=== PATIENT | female | born 1995 | race American Indian/Alaskan Native ===

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

== ENCOUNTER 2019-06-14 19:22 | Emergency (ER) | payer SELFPAY ==
--- NOTE | 2019-06-14 20:00 | Event Note ---
ED Screening Note Date of service: 06/14/19 Time: 19:55 ED Screening Note: This is a 23 y.o. F. that presents to the ER with lower abdominal pain for 2 days. + test at urgent care 2 days ago. + vaginal discharge, urinary frequency - dysuria, hematuria, vaginal bleeding, n/v/d LMP 05/05/2019 This initial assessment/diagnostic orders/clinical plan/treatment(s) is/are subject to change based on patients health status, clinical progression and re- assessment by fellow clinical providers in the ED. Further treatment and workup at subsequent clinical providers discretion. Patient/guardian urged not to elope from the ED as their condition may be serious if not clinically assessed and managed. Initial orders include: Labs OB US
[2019-06-14 20:28] LABS: Bilirubin,Urine NEG (Negative); Blood,Urine NEG (Negative); Color,Urine Yellow (Yellow); Protein,Urine <15 mg/dL mg/dL (Negative)
--- NOTE | 2019-06-14 21:18 | Ultrasound Report ---
ULTRASOUND OBSTETRIC INDICATION / CLINICAL INFORMATION: abdominal pain gest. Clinical Gestational Age (GA): 15 weeks 5 days by last menstrual period. TECHNIQUE: Transabdominal and Transvaginal. COMPARISON: None available. FINDINGS: GESTATIONAL SAC: Not identified. Uterus is grossly unremarkable appearance. It measures 7.1 x 3.9 x 4.7 cm and has an endometrial stri pe of 1.6 cm. ADNEXA: No significant abnormality. FREE FLUID: None. ADDITIONAL FINDINGS: None. IMPRESSION: No intrauterine is identified. This is considered a of unknown location. Serial m onitoring of beta hCG and close clinical follow-up are recommended, with repeat ultrasound as needed. Signer Name: Matt Bashir MD Signed: 06/14/2019 9:14 PM Workstation Name: [id number]
[2019-06-14 22:21] VITALS: BP 110/71
== END 2019-06-14 22:15 | disposition home or self-care (01) ==
LOC: ED 19:22
DX: O26.891 Other specified pregnancy related conditions, first trimester (principal); R10.30 Lower abdominal pain, unspecified; Z3A.01 Less than 8 weeks gestation of pregnancy
CPT/HCPCS: 36415; 76801; 76817; 81001; 84702; 84703

== ENCOUNTER 2019-07-12 16:08 | Emergency (ER) | payer SELFPAY ==
[2019-07-12] MEDS ORDERED: IBUPROFEN 800 MG TAB ONE (16:55)
[2019-07-12] MEDS ORDERED: IBUPROFEN 800 MG TAB PO ONE (16:56)
--- NOTE | 2019-07-12 18:21 | Emergency Department Report ---
ED Laceration HPI - HPI Chief Complaint: Wound/Laceration Stated Complaint: RIGHT HAND CUT Time Seen by Provider: 07/12/19 16:57 Occurred When: Today Location: Upper Extremity (right 3 finger tips) Tetanus Status: Up to Date (september2018) Laceration Symptoms: Yes Pain, No Foreign Body Sensation, No Numbness, No Weakness Other History: This is a 23-year-old female presents the ED complaining of pain and laceration to her right last 3 digits sustained from a scissors. Patient states that 1 of her coworker was handing her scissors and retracted it causing lacerations to her fingers. Patient states this happened today around 2:00 PM. Patient states she has a tetanus booster last year September when she got out of alf ED Review of Systems ROS: Stated complaint: RIGHT HAND CUT Other details as noted in HPI Comment: All other systems reviewed and negative ED Past Medical Hx - Past Medical History Previous Medical History?: No - Surgical History Past Surgical History?: No - Social History Smoking Status: Current Every Day Smoker Substance Use Type: Marijuana - Medications Home Medications: Home Medications Medication Instructions Recorded Confirmed Last Taken Type Penicillin Vk [Veetids TAB] 500 mg PO Q8H #30 tablet 02/06/15 Unknown Rx Acetaminophen/Codeine [Tylenol 1 tab PO Q6H PRN #15 tab 05/19/15 Unknown Rx /Codeine # 3 tab] Amoxicillin [Amoxicillin TAB] 875 mg PO BID #20 tablet 05/19/15 Unknown Rx Ibuprofen [Motrin 800 MG tab] 800 mg PO Q8HR PRN #30 tablet 05/19/15 Unknown Rx Amoxicillin/K Clav Tab [Augmentin 1 tab PO Q12HR #20 tab 07/25/16 Unknown Rx 875 mg] Ibuprofen [Motrin 800 MG tab] 800 mg PO Q8HR PRN #20 tablet 07/25/16 Unknown Rx Promethazine [Phenergan TAB] 25 mg PO Q6HR PRN #20 tab 07/25/16 Unknown Rx Promethazine [Phenergan] 25 mg SC Q6HR PRN #5 supp.rect 07/25/16 Unknown Rx traMADoL [Ultram] 50 mg PO Q6HR PRN #14 tablet 07/25/16 Unknown Rx Cyclobenzaprine [Flexeril] 10 mg PO QHS PRN #20 tablet 07/12/19 Unknown Rx Ibuprofen [Motrin 800 MG tab] 800 mg PO Q8HR PRN #30 tablet 07/12/19 Unknown Rx Laceration Physical Exam - Exam General: Vital signs noted. No distress. Alert and acting appropriately. Laceration Location: Upper Extremity Laceration Exam: Yes Normal Distal CMS, No Foreign Body, No Exposed Tendon, Vessel, or Nerve, No Tendon Injury ED Course Vital Signs 07/12/19 07/12/19 16:12 16:59 Temperature 97.5 F L Pulse Rate 90 Respiratory 20 18 Rate Blood Pressure 123/94 O2 Sat by Pulse 98 Oximetry - Laceration /Wound Repair Right Anterior Finger Wound Location: upper extremity Wound Length (cm): 3 Wound's Depth, Shape: superficial, linear Wound Explored: no foreign body removed Betadine Prep?: No Anesthesia: 1% Lidocaine Volume Anesthetic (ccs): 4 Wound Repaired With: sutures Suture Size/Type: 5:0, proline Number of Sutures: 22 Layer Closure?: No Sterile Dressing Applied?: Yes ED Medical Decision Making - Medical Decision Making 23-year-old female presents with laceration of 3+ fingers of the right hand The 1cm laceration wound on each finger was prepped and draped in sterile fa shion. Anesthesia was achieved with 1.5mL of 1% lidocaine using a digital block. The wound was irrigated with 200cc NS and explored. There were no foreign bodies The wound was reapproximated in 1 layer with sutures suing with 5-0 monofilament sutures in the dermis with continuous sutures percutaneously. 8 stitches to the middle finger 8 stitches to the fourth digit and 6 stitches to the little finger There was excellent reapproximation of the wound edges. The patient tolerated the procedure without complication. Discussed with patient to follow-up with her primary care provider within 7 to 10 days for suture removal. Critical care attestation.: If time is entered above; I have spent that time in minutes in the direct care of this critically ill patient, excluding procedure time. ED Disposition Clinical Impression: Laceration of finger of right hand without foreign body without damage to nail Disposition: [id number] TO HOME OR SELFCARE Is pt being admited?: No Does the pt Need Aspirin: No Condition: Stable Instructions: Suture Care (ED), Suture Removal (ED), Finger Laceration (ED) Additional Instructions: Make sure to follow up with the primary care physician as discussed. Take all your medications as you've been prescribed. If you have any worsening symptoms or develop new symptoms please return to ED immediately. Prescriptions: Cyclobenzaprine [Flexeril] 10 mg PO QHS PRN #20 tablet PRN Reason: Muscle Spasm Ibuprofen [Motrin 800 MG tab] 800 mg PO Q8HR PRN #30 tablet PRN Reason: Pain Referrals: PRIMARY CARE, [Primary Care Provider] - 3-5 Days [facility] [Outside] - 3-5 Days [facility] [Outside] - 3-5 Days [facility] [Outside] - 3-5 Days Forms: Work/School Release Form(ED) Time of Disposition: 18:25
[2019-07-12 18:45] VITALS: BP 142/64
== END 2019-07-12 18:45 | disposition home or self-care (01) ==
LOC: ED 16:08
DX: S61.219A Laceration without foreign body of unspecified finger without damage to nail, initial encounter (principal); F17.200 Nicotine dependence, unspecified, uncomplicated; F12.90 Cannabis use, unspecified, uncomplicated; Z79.899 Other long term (current) drug therapy; W26.8XXA Contact with other sharp object(s), not elsewhere classified, initial encounter; Y93.89 Activity, other specified; Y92.89 Other specified places as the place of occurrence of the external cause; Y99.8 Other external cause status
CPT/HCPCS: 99282

== ENCOUNTER 2019-07-17 14:11 | Emergency (ER) | payer SELFPAY ==
[2019-07-17 14:25] VITALS: BP 111/66
--- NOTE | 2019-07-17 14:55 | Emergency Department Report ---
Chief Complaint: Laceration/Recheck/Suture Stated Complaint: RT FINGER STICHS REMOVED Time Seen by Provider: 07/17/19 14:31 - HPI History of Present Illness: This is a 23-year-old -[place] female who presents to the emergency room for suture removal. Patient states she was told stitches to be removed in 5 days. There are lacerations to the right third, fourth, fifth fingers with sutures. Patient denies foul-smelling drainage from wounds, fever, chills, or dehiscence. - ROS Review of Systems: Skin: Sutures to right third, fourth, and fifth fingers All other systems reviewed without complaints. - Exam Vital Signs: Vital Signs 07/17/19 14:21 Temperature 98.2 F Pulse Rate 92 H Respiratory 18 Rate Blood Pressure 111/66 O2 Sat by Pulse 100 Oximetry Physical Exam: - General Limitations: No Limitations General appearance: alert, in no apparent distress - Respiratory Respiratory exam: Present: normal lung sounds bilaterally. Absent: respiratory distress - Cardiovascular Cardiovascular Exam: Present: regular rate, normal rhythm. Absent: systolic murmur, diastolic murmur, rubs, gallop - Extremities Exam Extremities exam: Present: normal inspection - Neurological Exam Neurological exam: Present: alert, oriented X3 - Psychiatric Psychiatric exam: Present: normal affect, normal mood - Skin Skin exam: Present: Intact sutures to right third, fourth, and fifth distal anterior phalanx, TTP, no erythema, no drainage, and full range of motion. Warm, dry, intact, normal color. Absent: rash MSE screening note: Focused history and physical exam performed. Due to findings the following was ordered: ED Medical Decision Making - Medical Decision Making This is a 23-year-old female who presents to the emergency room for suture removal. Vitals are stable. Patient in no acute distress. There are sutures to wounds of right anterior distal third, fourth, and fifth fingers. There are no signs of infection. Wounds appear to be still healing. Sutures placed 5 days ago. This is a nonemergent complaint. Sutures are not ready for removal. There are no signs of infection. She was given suture care instructions. Instructed to follow-up with primary care doctor, urgent care, or return to the emergency room in 5 days to have sutures removed. Discharged home stable with strict return instructions. ED Disposition for MSE Disposition: MED SCREENING EXAM-LEFT Condition: Stable Instructions: Suture Care (ED) Additional Instructions: Have sutures removed in 5 days. Avoid putting to much tension on wound site. Have sutures removed in 5 days by primary care provider or in ER. Return to ER if red, swollen, foul discharge, or fever. Referrals: ANGELITO RAMOS MD [Staff Physician] - 3-5 Days TURNER SWAN MD [Staff Physician] - 3-5 Days [facility] [Provider Group] - 3-5 Days Time of Disposition: 14:54
== END 2019-07-17 15:22 | disposition left against medical advice (07) ==
LOC: ED 14:11
DX: Z48.02 Encounter for removal of sutures (principal)
CPT/HCPCS: 99282